=== PATIENT | female | born 1995 | race African-American/Black ===

== ENCOUNTER 2017-01-22 12:49 | Emergency (ER) | payer MEDICAID, OTHER ==
[~2017-01-22] VITALS: Ht 165.1 cm; Wt 46.7 kg
[2017-01-22 13:31] VITALS: BP 125/89
== END 2017-01-22 13:55 | disposition home or self-care (01) ==
LOC: EDBD 12:49 → ER 12:55
DX: S16.1XXA Strain of muscle, fascia and tendon at neck level, initial encounter (principal); S39.012A Strain of muscle, fascia and tendon of lower back, initial encounter; F12.10 Cannabis abuse, uncomplicated; V79.40XA Driver of bus injured in collision with unspecified motor vehicles in traffic accident, initial encounter; Y93.89 Activity, other specified; Y99.8 Other external cause status; Y92.410 Unspecified street and highway as the place of occurrence of the external cause

== ENCOUNTER 2017-02-03 10:54 | Emergency (ER) | payer MEDICAID ==
[~2017-02-03] VITALS: Ht 165.1 cm; Wt 49.0 kg
[2017-02-03 11:19] VITALS: BP 129/81
== END 2017-02-03 12:07 | disposition left against medical advice (07) ==
LOC: EDBD 10:54 → ER 10:54
DX: R51 Headache (principal); Z53.21 Procedure and treatment not carried out due to patient leaving prior to being seen by health care provider

== ENCOUNTER 2022-07-10 10:54 | Inpatient (IN) | payer MEDICAID ==
[~2022-07-10] VITALS: Ht 165.1 cm; Wt 55.0 kg
[2022-07-10 11:52] LABS: Basophils # (auto) 0 10 ^3/uL (0-0.2); Basophils % (auto) 0.4 % (0.0-2.0); Eosinophils # (auto) 0 10 ^3/uL (0-0.8); Eosinophils % (auto) 0.1 % (0.0-7.0); Hematocrit 36.5 % (36.0-46.0); Hemoglobin 12.1 g/dL (12.2-16.2); Lymphocytes # (auto) 0.9 10 ^3/uL (0.4-5.4); Mean Corpuscular Hemoglobin 30.3 pg (28.0-32.0); Mean Corpuscular Hgb Conc. 33.2 g/dL (32.0-36.0); Mean Corpuscular Volume 91.2 fL (80.0-100.0); Monocytes # (auto) 0.6 10 ^3/uL (0-1.3); Monocytes % (auto) 5.4 % (0.0-12.0); Neutrophils # (auto) 9.4 10 ^3/uL (1.6-8.6); Neutrophils % (auto) 86.1 % (37.0-80.0); Red Cell Distribution Width 12.8 % (11.8-14.3)
[2022-07-10 12:35] LABS: Albumin 3.8 g/dL (3.4-5.0); Calcium 8.2 mg/dL (8.5-10.1); Potassium 3.9 mmol/L (3.5-5.1)
[2022-07-10 12:40] LABS: BUN/Creatinine Ratio 13.5 (10.0-20.0); Bilirubin, Total 0.4 mg/dL (0.2-1.0); Total Protein 7.1 g/dL (6.4-8.2)
[2022-07-10] MEDS ORDERED: MORPHINE SULFATE INJ 2 MG/ml SYRG IV ONE (16:15)
[2022-07-10] MEDS ORDERED: ONDANSETRON HCL 4 MG/2 ML VIAL IV ONE (16:15)
[2022-07-10 16:20] LABS: Urine Bacteria FEW /hpf (None Seen); Urine Blood Negative /uL (Negative); Urine Mucus FEW (None Seen); Urine WBC 1 /hpf (0 - 5)
[2022-07-10] MEDS ORDERED: SUCCINYLCHOLINE CHLORIDE 20 MG/ML 10ML VIAL IV ONE (17:25)
[2022-07-10] MEDS ORDERED: fentaNYL CITRATE 100 MCG/2 ML VL ONE (17:26)
[2022-07-10] MEDS ORDERED: MIDAZOLAM HCL 2MG/2ML 2ml VIAL (1mg/ml) ONE (17:27)
[2022-07-10] MEDS ORDERED: ROCURONIUM 10MG/ML 10ML VIAL IV ONE (17:29)
[2022-07-10] MEDS ORDERED: DexAMETHasone SOD PHOS 10MG/1ML VIAL INJ IV ONE (17:30)
[2022-07-10 17:33] LABS: INR 1.06 (0.9-1.15); Partial Thromboplastin Time 23.4 sec (24.6-33.4)
[2022-07-10] MEDS ORDERED: DOCU-94 PO (17:42)
[2022-07-10] MEDS ORDERED: IBUP800T27 PO (17:42)
[2022-07-10] MEDS ORDERED: HYDR-4902 PO (17:42)
[2022-07-10] MEDS ORDERED: ceFAZolin 1GM VL ONE (18:04)
[2022-07-10] MEDS ORDERED: PROPOFOL 10 MG/ML 20 ML IV ONE (18:04)
[2022-07-10] MEDS ORDERED: NEOSTIGMINE 1 MG/ML INJ (10mg/10ML VIAL) ONE (18:17)
[2022-07-10] MEDS ORDERED: GLYCOPYRROLATE 0.2 MG/ML 1ML VIAL ONE (18:17)
[2022-07-10] MEDS ORDERED: NITROGLYCERIN 0.4 MG SL TAB SL PRN (18:45)
[2022-07-10] MEDS ORDERED: ACETAMINOPHEN IV 100 ML IV ONE (18:45)
[2022-07-10] MEDS ORDERED: MORPHINE SULFATE INJ 2 MG/ml SYRG IV PRN (18:45)
[2022-07-10] MEDS ORDERED: HYDROmorphone HCL 2 MG/ML VL/or syr IV ONE (18:55)
[2022-07-10 20:38] VITALS: BP 117/71
[2022-07-10] MEDS ORDERED: CYCL-614 PO (20:54)
[2022-07-10] MEDS: ONDANSETRON HCL 4 MG/2 ML VIAL IV PRN (21:11)
[2022-07-10] MEDS: HYDROmorphone HCL 2 MG/ML VL/or syr IV PRN (21:21)
[2022-07-10 22:00] VITALS: BP 117/71
[2022-07-10 22:56] LABS: Basophils # (auto) 0 10 ^3/uL (0-0.2); Basophils % (auto) 0.2 % (0.0-2.0); Eosinophils # (auto) 0 10 ^3/uL (0-0.8); Hematocrit 30.2 % (36.0-46.0); Lymphocytes # (auto) 0.3 10 ^3/uL (0.4-5.4); Mean Corpuscular Hemoglobin 30.5 pg (28.0-32.0); Mean Corpuscular Hgb Conc. 33.2 g/dL (32.0-36.0); Monocytes # (auto) 0.3 10 ^3/uL (0-1.3); Neutrophils # (auto) 10.7 10 ^3/uL (1.6-8.6); Neutrophils % (auto) 93.8 % (37.0-80.0); Nucleated Red Blood Cells % 0.1 %; Red Blood Cells 3.28 10^6/uL (4.0-5.20); Red Cell Distribution Width 12.8 % (11.8-14.3); White Blood Cell 11.5 10^3/uL (4.4-10.8)
[2022-07-11] MEDS: HYDROmorphone HCL 2 MG/ML VL/or syr IV PRN ×3 (00:16→07:46)
[2022-07-11] MEDS: LACTATED RINGER'S 1,000 ML IV SCH ×4 (01:20→21:42)
[2022-07-11] MEDS ORDERED: ceFAZolin 1GM/50ML 50 ML IV SCH ×2 (02:00)
[2022-07-11] MEDS: ONDANSETRON HCL 4 MG/2 ML VIAL IV PRN ×2 (04:29→07:44)
[2022-07-11 05:00] VITALS: BP 104/56
[2022-07-11 06:12] LABS: Basophils # (auto) 0 10 ^3/uL (0-0.2); Basophils % (auto) 0.1 % (0.0-2.0); Eosinophils # (auto) 0 10 ^3/uL (0-0.8); Hematocrit 28.6 % (36.0-46.0); Hemoglobin 9.9 g/dL (12.2-16.2); Lymphocytes # (auto) 0.6 10 ^3/uL (0.4-5.4); Lymphocytes % (auto) 5.5 % (10.0-50.0); Mean Corpuscular Hemoglobin 31.1 pg (28.0-32.0); Mean Corpuscular Hgb Conc. 34.5 g/dL (32.0-36.0); Mean Corpuscular Volume 90.1 fL (80.0-100.0); Monocytes # (auto) 0.6 10 ^3/uL (0-1.3); Monocytes % (auto) 5.8 % (0.0-12.0); Neutrophils # (auto) 9.7 10 ^3/uL (1.6-8.6); Neutrophils % (auto) 88.6 % (37.0-80.0); Red Blood Cells 3.17 10^6/uL (4.0-5.20); Red Cell Distribution Width 12.9 % (11.8-14.3); White Blood Cell 10.9 10^3/uL (4.4-10.8)
[2022-07-11] MEDS ORDERED: BISACODYL 10 MG RECT SUPP PR PRN (08:00)
[2022-07-11] MEDS ORDERED: DOCUSATE SOD 100 MG CAP PO PRN (08:00)
[2022-07-11 09:00] VITALS: BP 109/65
[2022-07-11] MEDS: ceFAZolin 1GM/50ML 50 ML IV SCH ×2 (09:13→15:46)
[2022-07-11] MEDS: ACETAMINOPHEN 325 MG TAB PO PRN ×2 (09:15→17:38)
[2022-07-11] MEDS: DOCUSATE CALCIUM 240 MG CAP PO SCH (09:27)
[2022-07-11] MEDS: SIMETHICONE 80 MG CHEWABLE TABLET PO SCH ×3 (11:46→21:09)
[2022-07-11] MEDS: HYDROcodone-ACET 10/325MG TAB PO PRN ×3 (11:46→20:33)
[2022-07-11 13:00] VITALS: BP 101/49
[2022-07-11 17:00] VITALS: BP 114/69
[2022-07-11 22:00] VITALS: BP 114/66
[2022-07-12] MEDS: ceFAZolin 1GM/50ML 50 ML IV SCH ×4 (00:18→23:07)
[2022-07-12] MEDS: ONDANSETRON HCL 4 MG/2 ML VIAL IV PRN (00:18)
[2022-07-12] MEDS: ACETAMINOPHEN 325 MG TAB PO PRN ×2 (00:19→10:03)
[2022-07-12] MEDS: HYDROcodone-ACET 10/325MG TAB PO PRN ×3 (00:53→14:14)
[2022-07-12 05:00] VITALS: BP 101/59
[2022-07-12] MEDS: SIMETHICONE 80 MG CHEWABLE TABLET PO SCH ×4 (05:05→20:56)
[2022-07-12] MEDS: LACTATED RINGER'S 1,000 ML IV SCH ×4 (06:47→22:28)
[2022-07-12 09:05] VITALS: BP 109/62
[2022-07-12] MEDS: DOCUSATE CALCIUM 240 MG CAP PO SCH (10:03)
[2022-07-12 13:00] VITALS: BP 97/78
[2022-07-12 17:29] VITALS: BP 96/64
[2022-07-12] MEDS: KETOROLAC TROMETH 30 MG/ML 1ML VIAL IV PRN (17:36)
[2022-07-12 22:00] VITALS: BP 102/58
[2022-07-13] MEDS: LACTATED RINGER'S 1,000 ML IV SCH ×2 (02:45→13:25)
[2022-07-13] MEDS: KETOROLAC TROMETH 30 MG/ML 1ML VIAL IV PRN ×2 (03:09→11:39)
[2022-07-13 05:00] VITALS: BP 101/62
[2022-07-13] MEDS: SIMETHICONE 80 MG CHEWABLE TABLET PO SCH ×2 (05:01→12:40)
[2022-07-13 09:00] VITALS: BP 108/69
[2022-07-13] MEDS: ceFAZolin 1GM/50ML 50 ML IV SCH ×2 (09:02→16:00)
[2022-07-13] MEDS: DOCUSATE CALCIUM 240 MG CAP PO SCH (10:13)
[2022-07-13] MEDS ORDERED: LACTULOSE 20Gm/30ML SOLN PO ONE (11:45)
== END 2022-07-13 16:37 | disposition home or self-care (01) | DRG 513 ==
LOC: ER 10:54 → OVERFLOW 18:51 → TELE-CENTR 21:00 → CENTRAL 07-11 06:43
PROVIDERS: ADMIT Obstetrics & Gynecology; ATTEND Obstetrics & Gynecology
PROC: 0W3J0ZZ Control Bleeding in Pelvic Cavity, Open Approach (ICD-10-PCS; 2022-07-10)
PROC: 0UB00ZZ Excision of Right Ovary, Open Approach (ICD-10-PCS; principal; 2022-07-10 17:48)
DX: N83.511 Torsion of right ovary and ovarian pedicle (principal); K66.1 Hemoperitoneum; N83.8 Other noninflammatory disorders of ovary, fallopian tube and broad ligament; Z20.822 Contact with and (suspected) exposure to COVID-19
CPT/HCPCS: 36415; 76856; 80053; 81001; 81025; 84702; 85025; 85610; 85730; 86850; 86900; 86901; 87426; 96365; 96366; 96375; G0378; J0131; J0330; J0690; J1100; J1885; J2250; J2405; J2704

== ENCOUNTER 2024-07-03 18:56 | Emergency (ER) | payer MEDICAID ==
[~2024-07-03] VITALS: Ht 165.1 cm; Wt 53.6 kg
[~2024-07-03 18:56] MED LIST: CYCL-614 PO; DOCU-94 PO; HYDR-4902 PO; IBUP-1456 PO
[2024-07-03 20:46] LABS: Basophils # (auto) 0 10 ^3/uL (0-0.2); Basophils % (auto) 0.5 % (0.0-2.0); Eosinophils # (auto) 0.1 10 ^3/uL (0-0.8); Eosinophils % (auto) 0.8 % (0.0-7.0); Hematocrit 42.5 % (36.0-46.0); Hemoglobin 14.3 g/dL (12.2-16.2); Lymphocytes # (auto) 1.5 10 ^3/uL (0.4-5.4); Mean Corpuscular Hemoglobin 31.3 pg (28.0-32.0); Mean Corpuscular Hgb Conc. 33.8 g/dL (32.0-36.0); Mean Corpuscular Volume 92.7 fL (80.0-100.0); Monocytes # (auto) 0.3 10 ^3/uL (0-1.3); Monocytes % (auto) 4.4 % (0.0-12.0); Neutrophils # (auto) 4.8 10 ^3/uL (1.6-8.6); Neutrophils % (auto) 72.3 % (37.0-80.0); Nucleated Red Blood Cells % 0.1 %; Platelet Count (auto) 219 10^3/uL (140-450); Red Blood Cells 4.58 10^6/uL (4.0-5.20); Red Cell Distribution Width 12.9 % (11.8-14.3); White Blood Cell 6.7 10^3/uL (4.4-10.8)
[2024-07-03 21:00] LABS: Alanine Aminotransferase 21 U/L (7-40); Albumin 4.5 g/dL (3.2-4.8); Anion Gap 9 (5-15); Calcium 9.3 mg/dL (8.7-10.4); Carbon Dioxide 22 mmol/L (20-31); Chloride 107 mmol/L (98-107); Glucose 88 mg/dL (74-106); Sodium 138 mmol/L (136-145); Total Protein 7.2 g/dL (5.7-8.2)
[2024-07-03 21:01] LABS: Bilirubin, Total 0.4 mg/dL (0.2-1.0)
[2024-07-03 21:25] LABS: Alkaline Phosphatase 29 U/L (46-116); Aspartate Aminotransferase 98 U/L (13-40); Blood Urea Nitrogen 8 mg/dL (9-23)
[2024-07-03 21:49] VITALS: BP 150/90; PULSE 73; RESP 18; TEMP 98.9; O2SAT 100
--- NOTE | 2024-07-03 21:50 | ED.PDOC ---
Back pain HPI HPI Comments Pt arrived in ER due to bilateral upper extermity pain and swelling x 2 days. Pt alert and oriented x 4. VSS. Denies PMH. Pt states she lifted "heavy" at this gym to days ago and not and 6/10 pain to bilateral arms with reddness and swelling. Arms warm to touch. Minor tingling to hands with no numbness. Denies trauma. Chief Complaint: Upper Extremity Time Seen by MD: 19:11 Primary Care Provider: AMANDA Villatoro Notes: Nurses Notes, Medications, Allergies Allergies: Coded Allergies: NO KNOWN ALLERGIES (Unverified , 11/30/13) Home Meds Active Scripts Tizanidine Hydrochloride (Tizanidine Hcl) 4 Mg Tab, 4 MG PO HS PRN for 4 Days, #4 TAB Prov:ADELINE STERN VOCATIONAL REHABILITATION CONSULTANT 07/03/24 Methylprednisolone (Medrol Dosepak) 4 Mg Jordan, 4 MG PO UD for 6 Days, #21 TAB UAD Prov:ADELINE STERN VOCATIONAL REHABILITATION CONSULTANT 07/03/24 Ibuprofen (Ibuprofen) 800 Mg Tab, 800 MG PO TID PRN for 15 Days, #40 TAB Prov:ALESSIA BLACKWELL 07/10/22 Hydrocodone-Acetaminophen (Hydrocodone Bitartrate/AC 5-325 mg) 1 Tab Tab, 1 TAB PO Q6HPRN PRN for 5 Days, #20 TAB Prov:ALESSIA BLACKWELL 07/10/22 Docusate Sodium (Colace) 100 Mg Cap, 1 CAP PO BID, #60 CAP 2 Refills Prov:ALESSIA BLACKWELL 07/10/22 Reported Medications Cyclobenzaprine HCl (Cyclobenzaprine Hydrochlo) 5 Mg Tab, 1 TAB PO BIDPRN 07/10/22 Information Source: Patient Mode of Arrival: Ambulatory Past Medical History PAST MEDICAL HISTORY: Denies Surgical History: Denies all surgeries 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 Family History Family History: Unknown Social History Smoker: Non-Smoker Alcohol: Denies ETOH Use Drugs: Marijuana Lives In: Home Constitutional: denies: chills, diaphoresis, fatigue, fever, malaise, sweats, weakness, others EENTM: denies: blurred vision, double vision, ear bleeding, ear discharge, ear drainage, ear pain, ear ringing, eye pain, eye redness, hearing loss, mouth pain, mouth swelling, nasal discharge, nose bleeding, nose congestion, nose pain, photophobia, tearing, throat pain, throat swelling, voice changes, others Respiratory: denies: cough, hemoptysis, orthopnea, SOB at rest, shortness of breath, SOB with excertion, stridor, wheezing, others Cardiovascular: denies: chest pain, dizzy spells, diaphoresis, Dyspnea on exertion, edema, irregular heart beat, left arm pain, lightheadedness, palpitations, PND, syncope, others Gastrointestinal: denies: abdomen distended, abdominal pain, blood streaked bowels, constipated, diarrhea, dysphagia, difficulty swallowing, hematemesis, melena, nausea, poor appetite, poor fluid intake, rectal bleeding, rectal pain, vomiting, others Genitourinary: denies: abnormal vagina bleeding, burning, dyspareunia, dysuria, flank pain, frequency, hematuria, incontinence, pain, , vagina discharge, urgency, others Neurological: denies: dizziness, fainting, headache, left sided numbness, left sided weakness, numbness, paresthesia, pre-existing deficit, right sided numbness, right sided weakness, seizure, speech problems, tingling, tremors, weakness, others Musculoskeletal: reports: others (BILATERAL UPPER AND LOWER ARM PAIN); denies: back pain, gout, joint pain, joint swelling, muscle pain, muscle stiffness, neck pain Integumetry: denies: bruises, change in color, change in hair/nails, dryness, laceration, lesions, lumps, rash, wounds, others Allergic/Immunocompromised: denies: Difficulty Healing, Frequent Infections, Hives, Itching, others Hematologic/Lymphatic: denies: anemia, blood clots, easy bleeding, easy brui sing, swollen glands, others Endocrine: denies: excessive hunger, excessive sweating, excessive thirst, ex cessive urination, flushing, intolerance to cold, intolerance to heat, unexplained weight gain, unexplained weight loss, others Psychiatric: denies: anxiety, bipolar disorder, depression, hopeless, panic disorder, schizophrenia, sleepless, suicidal, others Physical Exam General Appearance: No Apparent Distress, Normal HEENT: Pharynx Normal Neck: Full Range of Motion, Non-Tender Respiratory: Lungs Clear, No Respiratory Distress, Normal Breath Sounds Cardiovascular: No Edema, No JVD, No Murmur, No Gallop, Normal Peripheral Pulses, Regular Rate/Rhythm Breast Exam: Deferred Gastrointestinal: No Organomegaly, Non Tender, No Pulsatile Mass, Normal Bowel Sounds, Soft Genitalia: Deferred Pelvic: Deferred Rectal: Deferred Extremities: Normal capillary refill, Normal inspection, Normal range of motion, Non-tender, No pedal edema Musculoskeletal : Location: Bilateral Extremity Location: Arm, Forearm (TENDERNESS NOTED OVER BICEPS MUSCULATURE AND FOREARM MUSCULATURE WITH NOTED SLIGHT WARMTH AND ERYTHEMA NO NOTED OPEN LESIONS, EXCORIATIONS OR WOUNDS. STRENGTH SENSORY AND MOTION GROSSLY INTACT POSITIVE RADIAL PULSES) Apperance: Normal Neurologic: Alert, inspector fibrous wallboard II-XII nml as Tested, No Motor Deficits, Normal Affect, Normal Mood, No Sensory Deficits Cerebellar Function: Normal Reflexes: Normal Skin: Dry, Normal Color, Warm Lymphatic: No Adenopathy Was a procedure done? Was a procedure done?: No Back Pain Differential Dx Differential Diagnosis: Musculoskeletal Pain, Strain X-Ray, Labs, Meds, VS Vital Signs Date Time Temp Pulse Resp B/P (MAP) Pulse Ox O2 Delivery O2 Flow Rate FiO2 07/03/24 21:49 98.9 73 18 150/90 (110) 100 98.9 07/03/24 19:15 98.9 73 18 150/90 (110) 100 98.9 Lab Test 07/03/24 20:33 Range/Units White Blood Count 6.7 4.4-10.8 10^3/uL Red Blood Count 4.58 4.0-5.20 10^6/uL Hemoglobin 14.3 12.2-16.2 g/dL Hematocrit 42.5 36.0-46.0 % Mean Corpuscular Volume 92.7 80.0-100.0 fL Mean Corpuscular Hemoglobin 31.3 28.0-32.0 pg Mean Corpuscular Hemoglobin Concent 33.8 32.0-36.0 g/dL Red Cell Distribution Width 12.9 11.8-14.3 % Platelet Count 219 140-450 10^3/uL Mean Platelet Volume 7.7 6.9-10.8 fL Neutrophils (%) (Auto) 72.3 37.0-80.0 % Lymphocytes (%) (Auto) 22.0 10.0-50.0 % Monocytes (%) (Auto) 4.4 0.0-12.0 % Eosinophils (%) (Auto) 0.8 0.0-7.0 % Basophils (%) (Auto) 0.5 0.0-2.0 % Neutrophils # (Auto) 4.8 1.6-8.6 10 ^3/uL Lymphocytes # (Auto) 1.5 0.4-5.4 10 ^3/uL Monocytes # (Auto) 0.3 0-1.3 10 ^3/uL Eosinophils # (Auto) 0.1 0-0.8 10 ^3/uL Basophils # (Auto) 0 0-0.2 10 ^3/uL Nucleated Red Blood Cells 0.1 % Sodium Level 138 136-145 mmol/L Potassium Level 4.0 3.5-5.1 mmol/L Chloride Level 107 98-107 mmol/L Carbon Dioxide Level 22 20-31 mmol/L Anion Gap 9 5-15 Blood Urea Nitrogen 8 L 9-23 mg/dL Creatinine 0.73 0.550-1.02 mg/dL Glomerular Filtration Rate Calc 113 >90 mL/min BUN/Creatinine Ratio 11.0 10.0-20.0 Serum Glucose 88 74-106 mg/dL Calcium Level 9.3 8.7-10.4 mg/dL Total Bilirubin 0.4 0.2-1.0 mg/dL Aspartate Amino Transferase (AST) 98 H 13-40 U/L Alanine Aminotransferase (ALT) 21 7-40 U/L Alkaline Phosphatase 29 L 46-116 U/L Total Protein 7.2 5.7-8.2 g/dL Albumin 4.5 3.2-4.8 g/dL Current Medications Medications (Trade) Dose Ordered Sig/Mikhail Route Start Time Stop Time Status Last Admin Ketorolac Tromethamine (Toradol Injection) 60 mg ONCE ONCE IM 07/03/24 22:00 07/03/24 22:01 DC 07/03/24 22:08 Ceftriaxone Sodium (Rocephin) 1,000 mg ONCE ONCE IM 07/03/24 22:00 07/03/24 22:01 DC 07/03/24 22:08 X-Ray, Labs, Meds, VS Comment LIKELY FASCIA AND MUSCLE STRAIN. TORADOL 60 MG IM CONSIDER POSSIBLE CELLULITIS WE WILL JUST TREAT X1 WITH ROCEPHIN 1 G. SCRIPT MEDROL DOSEPAK AND A MUSCLE RELAXER. ADVISED TO TAKE MEDICATIONS PRESCRIBED SIDE EFFECTS DISCUSSED. PATIENT ALSO ADVISED TO FOLLOW UP WITH HER PCP IN 1-2 DAYS AND RETURN TO THE ER FOR INCREASING PAIN ANY NUMBNESS WEAKNESS, FEVER, CHILLS, NAUSEA, VOMITING OR INCREASING REDNESS. PATIENT INDICATES UNDERSTANDING AND AGREES WITH DISCHARGE PLAN OF CARE. Time of 1ST Reevaluation: 21:48 Reevaluation 1ST: Improved Patient Education/Counseling: Diagnosis, Treatment, Prognosis, Need For Follow Up Family Education/Counseling: No Family Present Departure 1 Departure Time of Disposition: 21:48 Impression: Primary Impression: Strain of other muscles, fascia and tendons at forearm level, right arm, initial encounter Additional Impression: Strain of other muscles, fascia and tendons at forearm level, left arm, initial encounter Disposition: HOME / SELF CARE / HOMELESS Condition: Stable e-Prescriptions Tizanidine Hydrochloride (Tizanidine Hcl) 4 Mg Tab 4 MG PO HS PRN for 4 Days, #4 TAB Prov: ADELINE STERN 07/03/24 Methylprednisolone (Medrol Dosepak) 4 Mg Jordan 4 MG PO UD for 6 Days, #21 TAB UAD Prov: ADELINE STERN 07/03/24 Discharged With: Self Critical Care Note Critical Care Time?: No Stability Stability form required: No ADELINE STERN Jul 03, 2024 21:50
[2024-07-03] MEDS ORDERED: METH4PAK PO (21:51)
[2024-07-03] MEDS ORDERED: TIZA-142 PO (21:51)
[2024-07-03] MEDS: KETOROLAC TROMETH 60MG/2ML VIAL IM ONE (22:08)
[2024-07-03] MEDS: cefTRIAXone SOD 1,000 MG VL IM ONE (22:08)
== END 2024-07-03 22:20 | disposition home or self-care (01) ==
LOC: ER 19:00
DX: S56.812A Strain of other muscles, fascia and tendons at forearm level, left arm, initial encounter (principal); S56.811A Strain of other muscles, fascia and tendons at forearm level, right arm, initial encounter; X58.XXXA Exposure to other specified factors, initial encounter; Y93.89 Activity, other specified; Y92.89 Other specified places as the place of occurrence of the external cause; Y99.8 Other external cause status
CPT/HCPCS: 36415; 80053; 85025; 96372; 99284; J0696; J1885

== ENCOUNTER 2025-01-04 23:59 | Emergency (ER) | payer MEDICAID ==
[2025-01-05] VITALS: TEMP 98.7
[2025-01-05 00:28] LABS: Hematocrit 41.1 % (36.0-46.0); Hemoglobin 13.9 g/dL (12.2-16.2); Mean Corpuscular Hemoglobin 30.9 pg (28.0-32.0); Mean Corpuscular Volume 91.3 fL (80.0-100.0); Nucleated Red Blood Cells % 0.1 %
[2025-01-05 00:38] VITALS: BP 111/70; PULSE 96; RESP 16
--- NOTE | 2025-01-05 00:40 | DVH ---
CHEST RADIOGRAPH Indication: Chest pain Technique: Single frontal view of the chest was obtained COMPARISON: None FINDINGS: Lungs and pleural spaces are clear. Cardiac silhouette and kirti are within normal limits. Bones and s oft tissues demonstrate no significant abnormality. IMPRESSION: No acute disease.
[2025-01-05] MEDS: NITROGLYCERIN 0.4 MG SL TAB SL ONE (00:44)
[2025-01-05 00:45] VITALS: O2SAT 98
[2025-01-05 00:58] LABS: Albumin 4.4 g/dL (3.2-4.8); Anion Gap 8 (5-15); BUN/Creatinine Ratio 9.8 (10.0-20.0); Calcium 9.3 mg/dL (8.7-10.4); Carbon Dioxide 26 mmol/L (20-31); Glucose 104 mg/dL (74-106); Potassium 3.8 mmol/L (3.5-5.1); Sodium 142 mmol/L (136-145); Total Protein 7.2 g/dL (5.7-8.2)
[2025-01-05 00:59] LABS: Bilirubin, Total 0.6 mg/dL (0.2-1.0)
[2025-01-05 01:03] LABS: Alanine Aminotransferase < 9 U/L (7-40); Alkaline Phosphatase 30 U/L (46-116); Blood Urea Nitrogen 8 mg/dL (9-23); Chloride 108 mmol/L (98-107); Lipase 72 U/L (12-53)
[2025-01-05] MEDS ORDERED: KETOROLAC TROMETH 60MG/2ML VIAL IM ONE (01:30)
[2025-01-05] MEDS ORDERED: HYDROcodone-ACET 10/325MG TAB PO ONE (01:30)
[2025-01-05] MEDS ORDERED: HYDR-4798 PO (01:39)
[2025-01-05] MEDS ORDERED: ZOFR4T PO (01:39)
--- NOTE | 2025-01-05 01:40 | ED.PDOC ---
HPI Comments This patient is a pleasant 29-year-old female who arrives the ED today for evaluation of epigastric/chest pain concerns for the past five days with intermittent nausea that radiates to the patient's back. Patient states the pain came on five days ago and has been relatively unrelenting. Patient states she has not been eating as food makes her nauseous and increases the pain. Patient denies any history of cardiac, GI or pulmonary concerns. Vital signs were stable on arrival. Chief Complaint: Chest Pain Time Seen by MD: 00:06 Primary Care Provider: AMANDA Reviewed Notes: Nurses Notes Allergies: Coded Allergies: NO KNOWN ALLERGIES (Unverified , 11/30/13) Home Meds Active Scripts Ibuprofen (Ibuprofen) 800 Mg Tab, 800 MG PO TID PRN for 15 Days, #40 TAB Prov:ALESSIA BLACKWELL DO 07/10/22 Hydrocodone-Acetaminophen (Hydrocodone Bitartrate/AC 5-325 mg) 1 Tab Tab, 1 TAB PO Q6HPRN PRN for 5 Days, #20 TAB Prov:ALESSIA BLACKWELL 07/10/22 Docusate Sodium (Colace) 100 Mg Cap, 1 CAP PO BID, #60 CAP 2 Refills Prov:ALESSIA BLACKWELL DO 07/10/22 Reported Medications Cyclobenzaprine HCl (Cyclobenzaprine Hydrochlo) 5 Mg Tab, 1 TAB PO BIDPRN 07/10/22 Information Source: Patient Mode of Arrival: Ambulatory Severity: Moderate Timing: Days Duration: Since onset Prehospital treatment: None Location: Substernal Radiation: Abdomen Quality: Sharp, Stabbing Onset: At Rest Cardiac Risk Factors: None PE Risk Factors: None History of: None Past Medical History PAST MEDICAL HISTORY: Denies Surgical History: Denies all surgeries 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 Family History Family History: Unknown Social History Smoker: Non-Smoker Alcohol: Denies ETOH Use Drugs: Marijuana Lives In: Home Constitutional: denies: chills, diaphoresis, fatigue, fever, malaise, sweats, weakness, others EENTM: denies: blurred vision, double vision, ear bleeding, ear discharge, ear drainage, ear pain, ear ringing, eye pain, eye redness, hearing loss, mouth pain, mouth swelling, nasal discharge, nose bleeding, nose congestion, nose pain, photophobia, tearing, throat pain, throat swelling, voice changes, others Respiratory: denies: cough, hemoptysis, orthopnea, SOB at rest, shortness of breath, SOB with excertion, stridor, wheezing, others Cardiovascular: denies: chest pain, dizzy spells, diaphoresis, Dyspnea on exertion, edema, irregular heart beat, left arm pain, lightheadedness, palpitations, PND, syncope, others Gastrointestinal: reports: abdominal pain; denies: abdomen distended, blood streaked bowels, constipated, diarrhea, dysphagia, difficulty swallowing, hematemesis, melena, nausea, poor appetite, poor fluid intake, rectal bleeding, rectal pain, vomiting, others Genitourinary: denies: abnormal vagina bleeding, burning, dyspareunia, dysuria, flank pain, frequency, hematuria, incontinence, pain, , vagina discharge, urgency, others Neurological: denies: dizziness, fainting, headache, left sided numbness, left sided weakness, numbness, paresthesia, pre-existing deficit, right sided numbness, right sided weakness, seizure, speech problems, tingling, tremors, weakness, others Musculoskeletal: reports: back pain; denies: gout, joint pain, joint swelling, muscle pain, muscle stiffness, neck pain, others Integumetry: denies: bruises, change in color, change in hair/nails, dryness, laceration, lesions, lumps, rash, wounds, others Allergic/Immunocompromised: denies: Difficulty Healing, Frequent Infections, Hives, Itching, others Hematologic/Lymphatic: denies: anemia, blood clots, easy bleeding, easy bruising, swollen glands, others Endocrine: denies: excessive hunger, excessive sweating, excessive thirst, excessive urination, flushing, intolerance to cold, intolerance to heat, unexplained weight gain, unexplained weight loss, others Psychiatric: denies: anxiety, bipolar disorder, depression, hopeless, panic disorder, schizophrenia, sleepless, suicidal, others Physical Exam General Appearance: Moderate Distress (Moderate distress due to pain concerns.), Normal HEENT: Normal ENT Inspection, Pharynx Normal, TMs Normal Neck: Full Range of Motion, Non-Tender, Normal, Normal Inspection Respiratory: Chest Non-Tender, Lungs Clear, No Accessory Muscle Use, No Respiratory Distress, Normal Breath Sounds Cardiovascular: No Edema, No JVD, No Murmur, No Gallop, Normal Peripheral Pulses, Regular Rate/Rhythm Breast Exam: Deferred Gastrointestinal: Other (Patient complains of pain from the epigastric region into the lower sternal region. Abdomen was mildly rigid. No pulsatile masses.) Genitalia: Deferred Pelvic: Deferred Rectal: Deferred Extremities: No calf tenderness, Normal capillary refill, Normal inspection, Normal range of motion, Non-tender, No pedal edema Neurologic: Alert Cerebellar Function: NOT DONE Reflexes: NOT DONE Skin: Dry, Normal Color, Warm Lymphatic: No Adenopathy Was a procedure done? Was a procedure done?: No CP Differential Dx Differential Diagnosis: Other (Acid reflux, pancreatitis, acute coronary syndrome, gastroenteritis, fatty liver, sepsis, electrolyte abnormality) X-Ray, Labs, Meds, VS Vital Signs Date Time Temp Pulse Resp B/P (MAP) Pulse Ox O2 Delivery O2 Flow Rate FiO2 01/05/25 00:45 98 Room Air* 0 21 01/05/25 00:44 110/70 01/05/25 00:38 96 16 111/70 (84) 100 01/05/25 00:14 89 01/05/25 00:00 98.7 103 16 124/75 99 98.7 Lab Test 01/05/25 00:59 01/05/25 00:14 Range/Units Troponin I High Sensitivity Pending < 3 L </=34 ng/L White Blood Count 4.9 4.4-10.8 10^3/uL Red Blood Count 4.51 4.0-5.20 10^6/uL Hemoglobin 13.9 12.2-16.2 g/dL Hematocrit 41.1 36.0-46.0 % Mean Corpuscular Volume 91.3 80.0-100.0 fL Mean Corpuscular Hemoglobin 30.9 28.0-32.0 pg Mean Corpuscular Hemoglobin Concent 33.8 32.0-36.0 g/dL Red Cell Distribution Width 13.1 11.8-14.3 % Platelet Count 218 140-450 10^3/uL Mean Platelet Volume 7.5 6.9-10.8 fL Neutrophils (%) (Auto) 61.0 37.0-80.0 % Lymphocytes (%) (Auto) 29.4 10.0-50.0 % Monocytes (%) (Auto) 8.2 0.0-12.0 % Eosinophils (%) (Auto) 0.8 0.0-7.0 % Basophils (%) (Auto) 0.6 0.0-2.0 % Neutrophils # (Auto) 3.0 1.6-8.6 10 ^3/uL Lymphocytes # (Auto) 1.4 0.4-5.4 10 ^3/uL Monocytes # (Auto) 0.4 0-1.3 10 ^3/uL Eosinophils # (Auto) 0 0-0.8 10 ^3/uL Basophils # (Auto) 0 0-0.2 10 ^3/uL Nucleated Red Blood Cells 0.1 % Sodium Level 142 136-145 mmol/L Potassium Level 3.8 3.5-5.1 mmol/L Chloride Level 108 H 98-107 mmol/L Carbon Dioxide Level 26 20-31 mmol/L Anion Gap 8 5-15 Blood Urea Nitrogen 8 L 9-23 mg/dL Creatinine 0.82 0.550-1.02 mg/dL Glomerular Filtration Rate Calc 98 >90 mL/min BUN/Creatinine Ratio 9.8 L 10.0-20.0 Serum Glucose 104 74-106 mg/dL Calcium Level 9.3 8.7-10.4 mg/dL Total Bilirubin 0.6 0.2-1.0 mg/dL Aspartate Amino Transferase (AST) 11 L 13-40 U/L Alanine Aminotransferase (ALT) < 9 7-40 U/L Alkaline Phosphatase 30 L 46-116 U/L B-Type Natriuretic Peptide 2.95 0-100 pg/mL Total Protein 7.2 5.7-8.2 g/dL Albumin 4.4 3.2-4.8 g/dL Lipase 72 H 12-53 U/L Current Medications Medications (Trade) Dose Ordered Sig/Mikhail Route Start Time Stop Time Status Last Admin Nitroglycerin (Ntrostat Sublingual) 0.4 mg ONCE ONCE SL 01/05/25 00:15 01/05/25 00:16 DC 01/05/25 00:44 X-Ray, Labs, Meds, VS Comment All studies performed the ED were evaluated by me personally. Serum studies were relatively unremarkable other than an elevated lipase indicative of a pancreatitis event. EKG revealed a sinus rhythm with a rate of 89. RSR in V1 or V2 which was probably a normal variant. [place] interval of 138 and QT interval of 359. Patient appears to be suffering from a pancreatitis event. Discussed the diagnosis with the patient. Patient states she would like to try to manage this at home on her own. Patient states additionally can not, she will return to the ED for assistance. Advised patient hydrate well and utilize only broth and very light dietary foods for the next few days until event has resolved. Time of 1ST Reevaluation: :34 Reevaluation 1ST: Improved Consultation: PCP Patient Education/Counseling: Diagnosis, Treatment Family Education/Counseling: Diagnosis, Treatment SEPSIS Sepsis Screen Date sepsis recognized/suspect: Jan 05, 2025 Time Sepsis recognized/suspect: 0002 Recent Procedure: No On Antibiotic Therapy: No Respiratory Rate >20: No Heart Rate >90: Yes Temp<36 C (96.8 F) or >38.3 C: No SBP <90 or MAP <65 mmHG: No New Acute Mental Status Change: No Is the patient on CPAP, BIPAP,: No Physician Orders Chest Portable (01/05/25 00:10) Urinalysis (01/05/25 00:10) Electrocardigram (01/05/25 00:10) Troponin-I Hs (01/05/25 01:10) Troponin-I Hs (01/05/25 03:10) Ketorolac Injection (Toradol Injection) (01/05/25 01:30) Hydrocodone-Acet 10/325mg Tab (Kenefic 10/ (01/05/25 01:30) Vital Signs Date Time Temp Pulse Resp B/P (MAP) Pulse Ox O2 Delivery O2 Flow Rate FiO2 01/05/25 00:45 98 Room Air* 0 21 01/05/25 00:44 110/70 01/05/25 00:38 96 16 111/70 (84) 100 01/05/25 00:14 89 01/05/25 00:00 98.7 103 16 124/75 99 98.7 Laboratory Tests Test 01/05/25 00:14 White Blood Count 4.9 10^3/uL (4.4-10.8) Medications Medications Dose Ordered Sig/Mikhail Route Start Time Stop Time Status Last Admin Dose Admin Nitroglycerin 0.4 mg ONCE ONCE SL 01/05/25 00:15 01/05/25 00:16 DC 01/05/25 00:44 Departure 1 Departure Time of Disposition: Impression: Primary Impression: Pancreatitis Disposition: 01 HOME / SELF CARE / HOMELESS Condition: Stable Additional Instructions: Advised patient utilize pain medication as needed as well as good hydration and very light food sources for the next 5-7 days. Patient should be utilizing broth, minimal bread or rice type foods. If patient can not manage her condition at home, please return to the ED for assistance. e-Prescriptions Ondansetron Odt 4MG Tab (ZOFRAN PO) 4 Mg Tb 4 MG PO Q6HP PRN, #20 TAB ODT TAB-DISSOLVE IN MOUTH, THEN SWALLOW Prov: SAHRA CHILD PAC 01/05/25 Hydrocodone-Acetaminophen (Hydrocodone Bitartrate/AC 10-325 mg) 1 Tab Tab 1 TAB PO Q8HP PRN, #20 TAB Prov: SAHRA CHILD PAC 01/05/25 Discharged With: Self, Friend Critical Care Note Critical Care Time?: No Stability Stability form required: No Heart Score Heart Score: Heart Score Response (Comments) Value History Slightly Suspicious 0 EKG Normal 0 Age <45 0 Risk Factors No known risk factors 0 Troponin Normal limit 0 Total 0 SAHRA CHILD PAC Jan 05, 2025 01:40
--- NOTE | 2025-01-06 02:31 | ECG ---
[facility] Test Date: 2025-01-05 Test Time: 00:09:54 Pat Name: BRAYDEN PHILIPPE Department: Room: Gender: F Kaitara Taraka: : 1995 Requested By: SAHRA CHILD Order Number: [id number] Reading MD: Measurements Intervals [place] Rate: 89 P: 61 TN: 138 QRS: 39 QRSD: 72 T: 70 QT: 359 QTc: 437 Interpretive Statements Sinus rhythm RSR' in V1 or V2, probably normal variant Please click the below link to view image of tracing.
== END 2025-01-05 01:47 | disposition home or self-care (01) ==
LOC: ER 23:59
DX: K85.90 Acute pancreatitis without necrosis or infection, unspecified (principal); F12.90 Cannabis use, unspecified, uncomplicated; Z79.899 Other long term (current) drug therapy
CPT/HCPCS: 36415; 71045; 80053; 83690; 83880; 84484; 85025; 93005